=== PATIENT | female | born 1950 | race Caucasian/White ===

== ENCOUNTER → 2016-09-21 | Outpatient (CLI) | payer MEDICARE, BC | END | disposition home or self-care (01) | LOC: PCVCIMAG 15:58 | PROVIDERS: ATTEND Nuclear Medicine Nuclear Cardiology | DX: I70.213 Atherosclerosis of native arteries of extremities with intermittent claudication, bilateral legs (principal); I25.10 Atherosclerotic heart disease of native coronary artery without angina pectoris; I10 Essential (primary) hypertension; E78.00 Pure hypercholesterolemia, unspecified; E11.9 Type 2 diabetes mellitus without complications; E04.1 Nontoxic single thyroid nodule; Z95.820 Peripheral vascular angioplasty status with implants and grafts | CPT/HCPCS: 93925; G0463 ==

== ENCOUNTER → 2017-03-16 | Outpatient (CLI) | payer MEDICARE, BC ==
[~2017-03-16] MED LIST: REGADENOSON 0.4 MG/5 ML DISP.SYRIN. IV ONE
--- NOTE | 2017-03-16 18:29 | PCVCIMAG ---
APPROVED REPORT Exam: Nuclear Stress Test Indication: CAD Patient Location: Out-Patient Stress Nurse: Annia Stoddard RN, Nilsa Arenas RN HI Tech:Francisca Yasir ROTARY DRIER Ht: 5 ft 8 in Wt: 215 lbs BSA: 2.11 m2 HR: 96 bpm BP: 163/78 mmHg BMI: 32.6 Rhythm: SR Medical History Medical History: HTN, Hyperlipidemia, PVD, CVD, DM, Age, CAD Medications: Bystolic, Atorvastatin, HCTZ, Valsartan, Furosemide Allergies: No known drug allergies Pretest Chest Pain Characteristics: No chest pain Exercise History: Physically active Meds Held (24 hrs): Estela HI EXAM: Myocardial Perfusion REST/STRESS Imaging Protocol: Rest Tc-99m/Stress Tc-99m 1 day Resting Data Rest SPECT myocardial perfusion imaging was performed in supine position 45 minutes following the intravenous injection of 10.3 mCi of Tc-99m Sestamibi. Time of rest injection: 1300 Date: 03/16/2017 Administration Route: IV Administration Site: Left Wrist Pharmacologic Stress Pharmacologic stress test was performed by injecting Regadenoson 0.4 mg IV push followed by the intravenous injection of 31.2 mCi of Tc-99m Sestamibi. Time of stress injection: 1410 Date: 03/16/2017 Administration Route: IV Administration Site: Right Wrist Gated Stress SPECT was performed 45 minutes after stress injection. Study Quality Study: Good Study Data Post stress, the left ventricular ejection was 70%.. SSS: 14 SRS: 2 SDS: 12 TID = 1.15. Perfusion Large sized area of moderate reversible ischemia involving the anterior/lateral/anteroseptal left ventricle consistent with a left anterior descending and circumflex distribution. Wall Motion Normal left ventricular size and function with no regional wall motion abnormalities. Nuclear Conclusion Large sized area of moderate reversible ischemia involving the anterior/lateral/anteroseptal left ventricle consistent with a left anterior descending and circumflex distribution. Since 2014 study the amount of ischemia has increased perhaps due to progression of patient's known LAD stenosis. Normal left ventricular size and function with no regional wall motion abnormalities. Interpreted by: Darren Alford MD Electronically Approved: 03/16/2017 15:58:07 Stress Test Details Stress Test: Pharmacologic stress testing performed using 0.4 mg of regadenoson per 5 mL given IV over 10 seconds. Reason for pharmacologic stress test: physical limitation. HR Resting HR: 96 bpmMax Heart Rate (APMHR): 155 bpm Max HR Achieved: 108 bpmTarget HR (85% APMHR): 131 bpm % of APMHR: 69 Recovery HR: 101 bpm BP Resting BP: 163/78 mmHg Max BP: 164/74 mmHg ECG Resting ECG: Sinus Rhythm Stress ECG: Sinus Tachycardia Recovery ECG: Sinus Tachycardia Clinical Reason for Termination: Completed protocol Stress Symptoms: Dyspnea Exercise duration: 0 min 55 sec Symptoms resolved during recovery. Stress ECG Conclusion ECG: Non-ischemic <Conclusion> ECG: Non-ischemic
== END | disposition home or self-care (01) ==
LOC: EDSTATUS 07:19 → PCVCIMAG 12:22
PROVIDERS: ATTEND Internal Medicine Cardiovascular Disease
DX: I25.10 Atherosclerotic heart disease of native coronary artery without angina pectoris (principal); I73.9 Peripheral vascular disease, unspecified; I10 Essential (primary) hypertension; E11.9 Type 2 diabetes mellitus without complications
CPT/HCPCS: 78452; 93017; A9500; J2785

== ENCOUNTER → 2017-03-29 | Outpatient (CLI) | payer MEDICARE, BC | END | disposition home or self-care (01) | LOC: PCVCCLINIC 15:27 | PROVIDERS: ATTEND Internal Medicine Cardiovascular Disease | DX: I25.10 Atherosclerotic heart disease of native coronary artery without angina pectoris (principal); I10 Essential (primary) hypertension; E11.59 Type 2 diabetes mellitus with other circulatory complications; E78.2 Mixed hyperlipidemia; I77.9 Disorder of arteries and arterioles, unspecified; K21.9 Gastro-esophageal reflux disease without esophagitis; I73.9 Peripheral vascular disease, unspecified; Z89.411 Acquired absence of right great toe; Z79.4 Long term (current) use of insulin; F17.210 Nicotine dependence, cigarettes, uncomplicated; Z79.82 Long term (current) use of aspirin; Z79.899 Other long term (current) drug therapy | CPT/HCPCS: 93005; G0463 ==

== ENCOUNTER → 2017-04-19 | Outpatient (CLI) | payer MEDICARE, BC ==
--- NOTE | 2017-04-19 15:14 | PCVCIMAG ---
EXAM: BILATERAL LOWER EXTREMITY ARTERIAL DUPLEX INDICATION: Peripheral Arterial Disease. Leg pain. FINDINGS: Right Leg: Satisfactory waveforms in the common femoral and profunda femoral artery. No flow-limiting stenosis in the superficial femoral artery or popliteal artery. Previous SFA stent maintaining satisfactory patency. 60-70% stenosis in the tibioperoneal trunk. The anterior tibial, peroneal, and posterior tibial arteries are patent. Left Leg: Satisfactory arterial waveforms in the common femoral and profunda femoral arteries. No flow-limiting stenoses in the superficial femoral artery or popliteal artery. Previous stent mid/distal superficial femoral artery is patent. Occlusion of the distal anterior and posterior tibial arteries. The peroneal artery is patent. IMPRESSION: Previous bilateral superficial femoral artery stents are maintaining satisfactory patency. 60-70% stenosis in the tibioperoneal trunk on the right. Occlusion of the distal left anterior and posterior tibial arteries. LOC:[id number]
== END | disposition home or self-care (01) ==
LOC: PCVCIMAG 13:02
PROVIDERS: ATTEND Nuclear Medicine Nuclear Cardiology
DX: I25.10 Atherosclerotic heart disease of native coronary artery without angina pectoris (principal); I73.9 Peripheral vascular disease, unspecified; I77.9 Disorder of arteries and arterioles, unspecified; I10 Essential (primary) hypertension; E78.00 Pure hypercholesterolemia, unspecified; F17.210 Nicotine dependence, cigarettes, uncomplicated; I70.8 Atherosclerosis of other arteries
CPT/HCPCS: 36415; 93925; G0463

== ENCOUNTER → 2017-04-25 | Outpatient (CLI) | payer MEDICARE, BC ==
[~2017-04-25] MED LIST changes: +DIAZEPAM 10 MG TABLET. ONE; +EPINEPHrine 1 MG/ML VIAL ONE; +HEPARIN SODIUM 5,000 UNIT/ML VIAL for PCVC. ONE; +HEPARIN for ARTERIAL LINE 1,500 ML ONE; +IODIXANOL 270 MG/ML 100 ML VIAL. ONE; +IOHEXOL 350 MG/ML 100 ML VIAL. ONE; +IV NORMAL SALINE 1000ML BAG 1,000 ML ONE; +LIDOCAINE 1% Multi-Dose 20 ML VIAL. ONE; +MIDAZOLAM HCL/PF 2 MG/2 ML VIAL. ONE; -REGADENOSON 0.4 MG/5 ML DISP.SYRIN. IV ONE; +fentaNYL PF VIAL 100 MCG/2 ML VIAL ONE; +hydrALAZINE 20 MG/ML VIAL. ONE
--- NOTE | 2017-04-25 12:14 | PCVCINTER ---
EXAM: 1. AORTOGRAM AND BILATERAL LOWER EXTREMITY RUNOFF ANGIOGRAM 2. BILATERAL RENAL ANGIOGRAPHY INDICATION: Peripheral arterial disease. Coronary artery disease. Lower extremity pain. Hypertension. Renal atherosclerosis. PROCEDURE: Procedure and risks of angiography intervention is appropriate including limb loss stroke and were discussed with the patient's family and consent obtained. The patient's left groin was prepped abnormal sterile fashion. IV conscious sedation was used to procedure with appropriate monitoring from 10:45 AM through 11:45 AM. Ultrasound was used to interrogate the left groin and showed the left common femoral artery to be patent. A permanent spot film was obtained. Under ultrasound guidance access into the left common femoral artery was obtained and a 5 Turkmen sheath was placed. Through this a 5 Turkmen flush catheter was placed into the abdominal aorta at the level of the renal arteries and AP aortogram was performed. Catheter was positioned at the aortic bifurcation and both oblique views of the pelvis were obtained. Catheter was positioned into the left external iliac artery and left leg runoff angiography was performed. Catheter was exchanged for a visceral catheter was placed into the right renal arteries and right renal angiograms obtained. Catheter was placed into the the left renal arteries and left renal angiograms were obtained. Catheter was advanced to the level of the right external iliac artery and right leg runoff angiography was obtained. Dr. Villasenor joined the procedure and he performed coronary angiography. Please see his separate dictation for full details. Catheters and wires removed. Sheath was removed and hemostasis obtained using the FISH device. No immediate complications. FINDINGS: Aortogram: There are 2 right and one left renal artery. Mild plaque infrarenal abdominal aorta without significant stenosis. Pelvis: Minimal scattered plaque in the right and left common and external iliac arteries without evidence of stenosis. Both internal iliac arteries are patent. The right and left common femoral and profunda femoral arteries show good patency. Right renal artery: There are 2 right renal arteries with the upper renal artery being a small accessory renal artery. Both renal artery show satisfactory patency. Left renal artery: Minimal plaque proximal vessel does not cause significant stenosis. No branch vessel stenosis. Right leg: Scattered plaque in the superficial femoral artery and popliteal artery without significant stenosis. Previous stent distal superficial femoral artery maintaining good patency. Mild stenosis at the origin of the anterior tibial artery which then is patent to the level of the ankle. Peroneal artery is a moderate size vessel and shows a couple areas of mild stenosis in its mid portion not felt to be critically flow-limiting. The peroneal artery is a dominant runoff vessel to refill the dorsalis pedis. The posterior tibial artery is occluded in its mid/distal portion. Left leg: Mild scattered plaque throughout the superficial femoral artery and popliteal artery without significant stenosis. Previous stent distal superficial femoral artery maintaining good patency. The peroneal artery is a dominant runoff vessel and is widely patent to runoff into the foot. There is occlusion of the mid/distal posterior tibial artery and the distal anterior tibial artery. IMPRESSION: Previous bilateral superficial femoral artery stents maintaining good patency. Occlusion of the mid/distal right posterior tibial artery and the mid/distal left anterior and posterior tibial arteries. LOC:[id number]
--- NOTE | 2017-04-29 16:12 | PCVCINTER ---
APPROVED REPORT Patient Details Patient Status: Room #: 2 The patient is a 67 year-old Female Event Personnel Cullen Gonzales RN, Gabby De La Cruz DO, Nikki Rodriguez RN, Jade Pritchard RT(R) Risk Factors Arterial HypertensionDysplipidemia (Type: 1)Obesity, Peripheral Vascular Disease, Hypercholesterolemia, Last Creatanine 0.9Tobacco History (Current/Recent(w/in 1 year)) Previous Procedures/Diagnoses Previous Femoral Procedure, Previous DE Procedure Narrative The patient was brought electively to the Cardiac Catheterization Laboratory and was prepped and draped in a sterile manner. The left femoral was infiltrated with 1% Lidocaine subcutaneous anesthesia. A 6F sheath was inserted into the left femoral artery. Coronary angiography was performed using coronary diagnostic catheters. The right coronary system was accessed and visualized with a JR4 catheter. The left coronary system was accessed and visualized with a JL4 catheter. The left ventricle was accessed and visualized with a Straight Pigtail catheter. Left ventriculogram was performed in MADRID projection. Closure device was deployed with a 6 Fr Fish. Hemostasis was obtained with manual pressure following sheath removal without any complications. The patient tolerated the procedure well and there were no complications associated with the procedure. There was no hematoma. Intraoperative Conscious Sedation Fentanyl 100.0 mcgVersed 4.0 mg Hemodynamics The right atrial mean pressure is 12 mmHg. The right ventricular pressure is 115 mmHg. The pulmonary artery pressure is 115 mmHg with a mean of 12 mmHg. The mean pulmonary capillary wedge pressure is 12 mmHg. The aortic pressure is 119/70 mmHg with a mean of 92 mmHg. The left ventricular pressure is 141/12 mmHg with a mean of 15 mmHg. Conclusion #1 left ventricle normal in size and systolic function EF 60% #2 left main mildly disease giving rise to LAD and circumflex #3 LAD is mild to moderate calcification proximal mid vessel with mild disease moderate disease involving diagonal system #4 circumflex OM nondominant first OM subtotally occluded 6070% distal circumflex lesion filling a distal OM relatively small in caliber (treat medically) #5 right coronary anatomically dominant vessel extensive calcification diffuse disease proximal half distal third has a long narrowing of 70% with moderate disease relatively small-caliber PDA REMBERTO Recommendations and plan continue aggressive risk factor modification would opt for medical therapy at this point extensive calcification moderate disease. We'll follow closely No lifting for 48 hours no line tub Jacuzzi or Arceo for a week
== END | disposition home or self-care (01) ==
LOC: PCVCINTER 09:21
PROVIDERS: ATTEND Nuclear Medicine Nuclear Cardiology
DX: I70.213 Atherosclerosis of native arteries of extremities with intermittent claudication, bilateral legs (principal); I25.10 Atherosclerotic heart disease of native coronary artery without angina pectoris; I70.1 Atherosclerosis of renal artery; I10 Essential (primary) hypertension
CPT/HCPCS: 36246; 36252; 75716; 76937; 93458; 99152; 99153; C1751; C1760; C1769; C1894; J0171; J1644; J2250; J3010; J7030; Q9966; J0360; J0690; Q9967

== ENCOUNTER → 2017-07-27 | Outpatient (CLI) | payer MEDICARE, BC | END | disposition home or self-care (01) | LOC: PCVCCLINIC 09:20 | DX: I25.10 Atherosclerotic heart disease of native coronary artery without angina pectoris (principal); I10 Essential (primary) hypertension; E78.00 Pure hypercholesterolemia, unspecified; I73.9 Peripheral vascular disease, unspecified; E11.29 Type 2 diabetes mellitus with other diabetic kidney complication; R80.9 Proteinuria, unspecified; K21.9 Gastro-esophageal reflux disease without esophagitis; I77.9 Disorder of arteries and arterioles, unspecified; R94.31 Abnormal electrocardiogram [ECG] [EKG]; F17.210 Nicotine dependence, cigarettes, uncomplicated; Z79.82 Long term (current) use of aspirin; Z79.899 Other long term (current) drug therapy; Z79.4 Long term (current) use of insulin; Z79.84 Long term (current) use of oral hypoglycemic drugs | CPT/HCPCS: 80061; 93005; G0463 ==

== ENCOUNTER → 2017-08-18 | Outpatient (CLI) | payer MEDICARE, BC | END | disposition home or self-care (01) | LOC: PCVCIMAG 11:21 | DX: I73.9 Peripheral vascular disease, unspecified (principal) | CPT/HCPCS: 93925 ==

== ENCOUNTER → 2017-11-22 | Outpatient (CLI) | payer MEDICARE, BC | END | disposition home or self-care (01) | LOC: PCVCCLINIC 11:41 | DX: I25.10 Atherosclerotic heart disease of native coronary artery without angina pectoris (principal); I10 Essential (primary) hypertension; E11.29 Type 2 diabetes mellitus with other diabetic kidney complication; R80.9 Proteinuria, unspecified; E78.2 Mixed hyperlipidemia; E78.00 Pure hypercholesterolemia, unspecified; I70.203 Unspecified atherosclerosis of native arteries of extremities, bilateral legs; F17.210 Nicotine dependence, cigarettes, uncomplicated; Z68.33 Body mass index [BMI] 33.0-33.9, adult; Z79.4 Long term (current) use of insulin; Z79.82 Long term (current) use of aspirin; Z79.899 Other long term (current) drug therapy | CPT/HCPCS: 93005; G0463 ==

== ENCOUNTER → 2018-04-21 | Outpatient (CLI) | payer MEDICARE, BC | END | disposition home or self-care (01) | LOC: PCVCCLINIC 14:56 | PROVIDERS: ATTEND Internal Medicine Cardiovascular Disease | DX: I25.10 Atherosclerotic heart disease of native coronary artery without angina pectoris (principal); R94.31 Abnormal electrocardiogram [ECG] [EKG]; I10 Essential (primary) hypertension; E78.00 Pure hypercholesterolemia, unspecified; E11.29 Type 2 diabetes mellitus with other diabetic kidney complication; R80.9 Proteinuria, unspecified; I73.9 Peripheral vascular disease, unspecified; Z79.4 Long term (current) use of insulin; K21.9 Gastro-esophageal reflux disease without esophagitis; F17.210 Nicotine dependence, cigarettes, uncomplicated; Z79.84 Long term (current) use of oral hypoglycemic drugs; Z90.49 Acquired absence of other specified parts of digestive tract; Z79.82 Long term (current) use of aspirin | CPT/HCPCS: 36415; 80061; 93005; G0463 ==

== ENCOUNTER → 2018-05-26 | Outpatient (CLI) | payer MEDICARE, BC ==
--- NOTE | 2018-05-26 10:00 | PCVCIMAG ---
EXAM: BILATERAL LOWER EXTREMITY ARTERIAL DUPLEX INDICATION: Peripheral Arterial Disease. Leg pain. FINDINGS: Right Leg: Common femoral profunda femoral arteries are patent. Superficial femoral artery and popliteal artery are patent. Previous stent mid/distal superficial femoral artery is patent. The anterior tibial artery patent. 70% stenosis proximal peroneal artery. Occlusion distal posterior tibial artery. Left Leg: Common femoral and profunda femoral arteries are patent. Superficial femoral artery and popliteal artery are patent. Previous stent mid/distal superficial femoral artery is patent. Occlusion mid/distal anterior tibial artery. Peroneal artery is patent. Occlusion throughout the posterior tibial artery. IMPRESSION: Previous right superficial femoral artery stent maintaining good patency. 70% stenosis proximal right peroneal artery. Occlusion distal right posterior tibial artery. Previous left superficial femoral artery stent is maintaining good patency. Occlusion mid/distal left anterior tibial artery. Occlusion throughout left posterior tibial artery. LOC:[id number]
== END | disposition home or self-care (01) ==
LOC: PCVCIMAG 08:52
PROVIDERS: ATTEND Nuclear Medicine Nuclear Cardiology
DX: I73.9 Peripheral vascular disease, unspecified (principal); I77.9 Disorder of arteries and arterioles, unspecified; I25.10 Atherosclerotic heart disease of native coronary artery without angina pectoris; I10 Essential (primary) hypertension; E11.29 Type 2 diabetes mellitus with other diabetic kidney complication; R80.9 Proteinuria, unspecified; E78.00 Pure hypercholesterolemia, unspecified; E11.42 Type 2 diabetes mellitus with diabetic polyneuropathy; Z72.0 Tobacco use; Z79.4 Long term (current) use of insulin
CPT/HCPCS: 93925; G0463

== ENCOUNTER → 2018-11-06 | Outpatient (CLI) | payer MEDICARE, BC ==
--- NOTE | 2018-11-06 14:00 | PCVCIMAG ---
APPROVED REPORT Study performed: 11/06/2018 10:26:41 Exam: Stress Echocardiogram Indication: CAD Patient Location: Echo lab Stress Nurse: Annia Stoddard RN Room #: 2 Status: routine Ht: 5 ft 9 in HR: 84 bpm BP: 118/62 mmHg Rhythm: NSR Medical History Medical History: Diabetes, Hyperlipidemia, PAD Cardiac Risk Factors: Hyperlipidemia, DM Previous Cardiac Procedures: PCI Pretest Chest Pain Characteristics: No chest pain Exercise History: Sedentary Procedure The patient underwent an Exercise Stress Test using the Wally Protocol. Blood pressure, heart rate, and EKG were monitored. An Echocardiogram was performed by cardiology technician in four stages in quad fashion. At peak stress, four selected images were obtained and placed side by side with resting images for comparison. Stress Test Details Stress Test: Exercise stress testing was performed using a Wally protocol. HR Resting HR: 82 bpmMax Heart Rate (APMHR): 153 bpm Max HR Achieved: 113 bpmTarget HR (85% APMHR): 130 bpm % of APMHR: 73 Recovery HR: 85 bpm HR response to stress: Normal HR response to stress BP Resting BP: 118/62 mmHg Max BP: 146/62 mmHg Recovery BP: 118/78 mmHg BP response to stress: Normal blood pressure response to stress. ECG Resting ECG: Sinus Rhythm Stress ECG: Sinus Rhythm ST Change: Non-ischemic Arrhythmia: Rare isolated PVCs Recovery ECG: Sinus Rhythm Recovery ST Change: Non-ischemic Recovery Arrhythmia: Rare PVCs Clinical Reason for Termination: Maximal effort Stress Symptoms: Leg Fatigue, Fatigue Exercise duration: 4 min 54 sec Highest Stage Achieved: Manual 10 mph,15% Exercise capacity: 5.9 METs Overall Exercise Capacity for Age: Poor Scale: Sedentary Angina Score: None No complications. No complications. Stress ECG Conclusion The patient exercised according to the WALLY protocol for 4:54 mins; achieving a work level of 5.9METS. The resting heart rate of 82 bpm christen to a maximum heart rate of113 bpm. This value represent 73% of the maximal, age-predicted heart rate. The resting blood pressure of 118/62 mmHg, christen to a maximum blood pressure of 146/62 mmHg. The exercise test was stopped due to fatigue . Pre-Stress Echo The resting Echocardiogram showed normal left ventricular contractility with an estimated Ejection Fraction of about 55-60%. Normal wall motion in all segments on baseline images. Post-Stress Echo The stress Echocardiogram showed normal left ventricular contractility with an estimated Ejection Fraction of about 60-65%. Normal augmentation of wall motion in all segments on post stress images. Conclusion Clinical Response: Non-ischemic Exercise Capacity: Below Average Stress ECG Response: Indeterminant Stress Echo Images: Non-ischemic Submaximal study due to inability of the patient to achieve 85% of maximal HR with decreased seneitivity. <Conclusion> Submaximal study due to inability of the patient to achieve 85% of maximal HR with decreased seneitivity.
== END | disposition home or self-care (01) ==
LOC: PCVCIMAG 10:14
PROVIDERS: ATTEND Internal Medicine Cardiovascular Disease
DX: I25.10 Atherosclerotic heart disease of native coronary artery without angina pectoris (principal); E11.29 Type 2 diabetes mellitus with other diabetic kidney complication; I73.9 Peripheral vascular disease, unspecified; R80.9 Proteinuria, unspecified; Z79.4 Long term (current) use of insulin
CPT/HCPCS: 93325; 93351

== ENCOUNTER → 2019-02-28 | Outpatient (CLI) | payer MEDICARE, BC ==
--- NOTE | 2019-02-28 17:41 | PCVCIMAG ---
EXAM: BILATERAL CAROTID DUPLEX INDICATION: Carotid Occlusive Disease. FINDINGS: Doppler Measurements (centimeters per second): RIGHT: Peak CCA-74, Peak ECA-100, Diastolic ICA-27, Peak ICA-119, ICA/CCA Ratio-1.6. LEFT: Peak CCA-69, Peak ECA-69, Diastolic ICA-11, Peak ICA-62, ICA/CCA Ratio-0.9. RIGHT CAROTID: The carotid bulb has moderate plaque. The proximal internal carotid artery shows <40% stenosis. The common carotid artery shows no significant stenosis. The external carotid artery shows no significant stenosis. LEFT CAROTID: The carotid bulb has mild plaque. The proximal internal carotid artery shows <40% stenosis. The common carotid artery shows no significant stenosis. The external carotid artery shows no significant stenosis. Antegrade flow in both vertebral arteries. IMPRESSION: <40% stenosis of the right internal carotid artery with moderate plaque. <40% stenosis of the left internal carotid artery with mild plaque. No change since March 2016. LOC:[id number]
--- NOTE | 2019-02-28 17:57 | PCVCIMAG ---
EXAM: BILATERAL LOWER EXTREMITY ARTERIAL DUPLEX INDICATION: Peripheral Arterial Disease. Leg pain. FINDINGS: Right Leg: Common femoral and profunda femoral arteries are patent. Increased systolic velocity 277 cm/s distal superficial femoral artery in the midportion of a prior stent consistent with 50-60% restenosis has developed since prior study. Popliteal artery is patent. Unchanged occlusion distal posterior tibial artery. The anterior tibial and peroneal arteries are patent. Left Leg: Common femoral and profunda femoral arteries are patent. Superficial femoral artery and popliteal artery are patent including previous stent mid/distal superficial femoral artery. Unchanged occlusion of the anterior and posterior tibial arteries. Peroneal artery is patent. IMPRESSION: 50-60% restenosis mid/distal right superficial femoral artery the midportion of prior stent has developed since May 2018. Previous left superficial femoral artery stent remains patent. Unchanged occlusion distal right anterior tibial artery, and the left anterior and posterior tibial arteries. LOC:[id number]
== END | disposition home or self-care (01) ==
LOC: PCVCIMAG 13:31
PROVIDERS: ATTEND Internal Medicine Cardiovascular Disease
DX: I65.23 Occlusion and stenosis of bilateral carotid arteries (principal); I73.9 Peripheral vascular disease, unspecified
CPT/HCPCS: 93880; 93925